=== PATIENT | male | born 1965 | race African-American/Black ===

== ENCOUNTER 2020-06-11 01:37 | Emergency (ER) | payer OTHER ==
[~2020-06-11] VITALS: Ht 167.6 cm; Wt 65.8 kg
[2020-06-11 02:02] VITALS: BP 166/81
--- NOTE | 2020-06-11 02:35 | NUR ---
PATIENT'S COVID SWAB SAMPLE COLLECTED AND SENT TO THE LAB.
--- NOTE | 2020-06-11 03:31 | NUR ---
LAB CALLED REGARDING NEGATIVE COVID RESULT.
--- NOTE | 2020-06-11 03:45 | NUR ---
Patient discharged to home in stable condition. Written and verbal after care instructions given. Patient verbalizes understanding of instruction.
== END 2020-06-11 03:47 | disposition home or self-care (01) ==
LOC: ER 01:39
DX: R51.9 Headache, unspecified (principal); Z20.828 Contact with and (suspected) exposure to other viral communicable diseases; Z59.0 Homelessness; I10 Essential (primary) hypertension
CPT/HCPCS: 87426; 99283; C9803

== ENCOUNTER 2023-04-05 20:18 | Emergency (ER) | payer OTHER ==
[~2023-04-05] VITALS: Ht 167.6 cm; Wt 65.8 kg
--- NOTE | 2023-04-05 21:00 | NUR ---
[address] FOR DYSURIA PT'S BREATHING EVEN AND UNLABORED O2SAT 98%. PT STATES THAT HE CAN NOT CONTROL HIS URINE. AT TIMES HE CAN NOT URINATE AND OTHERS THE URINE LEAKS WITHOUT HIS KNOWLEDGE. VITALS ARE STABLE PLACED IN BED 12 AWAITING MD SPIVEY.
--- NOTE | 2023-04-05 21:58 | NUR ---
BLADDER SCAN SHOWED 108ML OF FLUID IN BLADDER SCAN
--- NOTE | 2023-04-05 21:58 | NUR ---
URINE COLLECTED AND SENT TO LAB
[2023-04-05 22:27] LABS: BILIRUBIN,URINE NEGATIVE (NEGATIVE); COLOR,URINE YELLOW (YELLOW); LEUKOCYTE ESTERASE ,URINE NEGATIVE (NEGATIVE); NITRITE, URINE NEGATIVE (NEGATIVE); PROTEIN,URINE NEGATIVE (NEGATIVE); UGLUCOSE NEGATIVE (NEGATIVE); UROBILINOGEN,URINE 0.2 EU/dL (0.2)
[2023-04-05 23:18] LABS: BACTERIA,URINE None seen /HPF (None Seen); CALCIUM OXALATE CRYSTALS,UR Few /HPF (None Seen); SQUAMOUS EPITHELIAL CELL,UR None Seen /HPF (None Seen); WBC,URINE 0-2 /HPF (0-3)
[2023-04-05 23:50] VITALS: BP 117/63; TEMP 98; O2SAT 98
== END 2023-04-05 23:50 | disposition home or self-care (01) ==
LOC: ER 20:19
DX: R30.0 Dysuria (principal); R31.29 Other microscopic hematuria; I10 Essential (primary) hypertension; F17.200 Nicotine dependence, unspecified, uncomplicated; Z59.00 Homelessness unspecified
CPT/HCPCS: 81001; 87086-TC; 87491; 87591